=== PATIENT | male | born 1995 | race Caucasian/White ===

== ENCOUNTER 2018-01-24 01:01 | Emergency (ER) | payer BC ==
[2018-01-24 01:05] VITALS: BP 148/94
[2018-01-24] MEDS ORDERED: CEFU500T10 PO (01:22)
[2018-01-24] MEDS ORDERED: HYDR-4309 PO (01:22)
--- NOTE | 2018-01-24 01:24 | ER Report ---
History and Physical Time Seen By MD: 01:02 HPI/ROS CHIEF COMPLAINT: Bilateral ear pain HISTORY OF PRESENT ILLNESS: 22-year-old male presents ambulatory to the ER complaining of bilateral ear pain, right greater than left. Patient notes viral URI symptoms since Friday of last week. He's been nauseated since Friday. He's had a productive cough for 3 days. He notes bilateral ear pain for the last 24 hours. He noticed increased pain with coughing, sneezing REVIEW OF SYSTEMS: Respiratory: As above Cardiovascular: No chest pain, no palpitations. Gastrointestinal: No vomiting, no abdominal pain. Musculoskeletal: No back pain. Allergies: Coded Allergies: No Known Drug Allergies (Unverified , 01/24/18) Home Meds Active Scripts Hydrocodone Bit/Acetaminophen (NORCO 5-325 TABLET) 1 Each Tablet, 1 EACH PO Q4H Y for PAIN, #10 TAB Prov:BERNARD ENCISO DO 01/24/18 Cefuroxime Axetil (CEFUROXIME) 500 Mg Tablet, 500 MG PO BID for infection, #20 TAB Prov:BERNARD ENCISO DO 01/24/18 Reviewed Nurses Notes: Yes Old Medical Records Reviewed: Yes Constitutional Vital Sign - Last 24 Hours 01/24/18 01:05 Temp 98.5 Pulse 95 Resp 16 B/P (MAP) 148/94 Pulse Ox 95 O2 Delivery Room Air Physical Exam General Appearance: The patient is alert, has no immediate need for airway protection and no current signs of toxicity. Vital signs stable, afebrile, pulse ox normal HEENT: Pupils equal and round no injection. Bilateral TMs bulging with erythema and injection. Ears. Likely fluid behind both tympanic membranes., Oropharynx with gross erythema, no cervical lymphadenopathy Respiratory: Chest is non tender, lungs are clear to auscultation. No wheezing or rails Cardiac: regular rate and rhythm Gastrointestinal: Abdomen is soft and non tender, no masses, bowel sounds normal. Musculoskeletal: Neck: Neck is supple and non tender. No lymphadenopathy Extremities have full range of motion and are non tender. Skin: No rashes or lesions. DIFFERENTIAL DIAGNOSIS: After history and physical exam differential diagnosis was considered for adult fever including but not limited to viral syndromes including influenza, otitis media, strep pharyngitis, sinusitis, urinary tract infection, pneumonia and sepsis. Medical Decision Making ED Course/Re-evaluation ED Course Patient was admitted to an examination room. H&P was done. The differential diagnosis was considered. On clinical examination. Patient has gross bilateral otitis media. Patient be covered with Ceftin 500 mg by mouth twice a day. Patient's given [place] for pain relief. He is advised Mucinex D twice daily to decongest his sinuses and eustachian tubes. Patient advised ibuprofen 600 mg 3 times daily with food. Decision to Disposition Date: Jan 24, 2018 Decision to Disposition Time: 01:14 Depart Departure Latest Vital Signs Vital Signs Date Time Temp Pulse Resp B/P (MAP) Pulse Ox O2 Delivery O2 Flow Rate FiO2 01/24/18 01:05 98.5 95 16 148/94 95 Room Air Impression: Primary Impression: Bilateral otitis media Additional Impression: Upper respiratory infection Condition: Improved Disposition: HOME OR SELF-CARE Referrals: JOSE JUAN MUNOZ MD, FARRUKH MD New Scripts Hydrocodone Bit/Acetaminophen (NORCO 5-325 TABLET) 1 Each Tablet 1 EACH PO Q4H Y for PAIN, #10 TAB Prov: BERNARD ENCISO DO 01/24/18 Cefuroxime Axetil (CEFUROXIME) 500 Mg Tablet 500 MG PO BID for infection, #20 TAB Prov: BERNARD ENCISO DO 01/24/18 Patient Instructions: Otitis Media (ED) Additional Instructions: Take ibuprofen 200 mg 3 tablets 3 times a day with food Take Mucinex D twice daily to decongest her sinuses and your eustachian tubes Follow-up with primary care if unimproved in 3-5 days. Problem Qualifiers Primary Impression: Bilateral otitis media Otitis media type: suppurative Chronicity: acute Recurrence: not specified as recurrent Spontaneous tympanic membrane rupture: without spontaneous rupture Qualified Codes: H66.003 - Acute suppurative otitis media without spontaneous rupture of ear drum, bilateral Additional Impression: Upper respiratory infection URI type: unspecified URI Qualified Codes: J06.9 - Acute upper respiratory infection, unspecified BERNARD ENCISO DO Jan 24, 2018 01:24
[2018-01-24] MEDS ORDERED: ACET/HYDROC 5/325MG TH ER ONLY 2 TAB/BOTTLE PO ONE (01:25)
[2018-01-24] MEDS ORDERED: CEFUROXIME AXETIL 250 MG TAB PO ONE (01:25)
== END 2018-01-24 01:36 | disposition home or self-care (01) ==
LOC: ER 01:09
DX: H66.003 Acute suppurative otitis media without spontaneous rupture of ear drum, bilateral (principal); J06.9 Acute upper respiratory infection, unspecified
CPT/HCPCS: 99283